=== PATIENT | female | born 1995 | race Caucasian/White ===

== ENCOUNTER 2018-06-19 19:32 | Outpatient (CLI) | payer MEDICAID ==
[2016-01-11 23:18] VITALS: BMI 32.6
[~2018-06-19 19:32] MED LIST: IBUPROFEN600 MG PO; PERCOCET 5-3251 TAB PO; PRENAVITE1 TAB PO; PROTONIX40 MG PO; ZITHROMAX250 MG
[2018-06-19 20:32] LABS: APPEARANCE HAZY (CLEAR); COLOR YELLOW (YELLOW)
[2018-06-19 20:33] LABS: BILIRUBIN 1+ (NEGATIVE); GLUCOSE NEGATIVE (NEGATIVE); KETONE NEGATIVE (NEGATIVE); NITRITE NEGATIVE (NEGATIVE); PROTEIN 1+ mg/dL (NEGATIVE)
[2018-06-19 20:34] LABS: BACTERIA MODERATE /hpf (NONE SEEN); EPITHELIAL CELLS 0-5 /hpf (0-5); RED CELLS - URINE 0-5 /hpf (0-5); WHITE CELLS - URINE 0-5 /hpf (0-5)
[2018-06-19 20:36] LABS: AMORPHOUS SEDIMENT >1+ /lpf (NONE SEEN); CALCIUM OXALATE CRYSTALS 0-5 /hpf (NONE SEEN)
[2018-06-19 21:23] LABS: BASOPHILS 0.1 % (0-2); EOSINOPHILS 0.8 % (0-7); HEMATOCRIT 28.5 % (36.0-48.0); HEMOGLOBIN 9.4 g/dL (12-16); IMMATURE GRANULOCYTES 1.2 % (0-5); LYMPHOCYTES 27.6 % (15-50); MCH 27.3 pg (26.0-34.0); MCV 82.8 fL (80.0-100.0); MEAN PLATELET VOLUME 10.6 fL (7.4-10.4); MONOCYTES 9.1 % (2-11); NEUTROPHILS 61.2 % (40-80); PLATELET COUNT 198 10x3/uL (130-400); RBC 3.44 10x6/uL (4.00-5.40); RDW 14.1 % (11.5-14.5); WBC 8.5 10x3/uL (4.8-10.8)
== END 2018-06-20 03:10 | disposition home or self-care (01) ==
LOC: D.LDO 19:32 → D.LD 23:13 → D.LDO 06-20 03:10
PROVIDERS: Obstetrics & Gynecology
DX: O26.893 Other specified pregnancy related conditions, third trimester (principal); Z3A.34 34 weeks gestation of pregnancy

== ENCOUNTER → 2018-07-13 14:26 | Outpatient (CLI) | payer MEDICAID ==
[2016-01-11 23:18] VITALS: BMI 32.6
== END | disposition home or self-care (01) ==
LOC: D.LDO 14:26
DX: O36.8130 Decreased fetal movements, third trimester, not applicable or unspecified (principal); Z3A.38 38 weeks gestation of pregnancy